=== PATIENT | male | born 1980 | race Caucasian/White ===

== ENCOUNTER 2018-12-23 15:44 | Emergency (ER) | payer BC ==
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
== END 2018-12-23 17:47 | disposition home or self-care (01) ==
LOC: JD.ED 15:44
DX: T20.50XA Corrosion of first degree of head, face, and neck, unspecified site, initial encounter (principal); T22.5 Corrosion of first degree of shoulder and upper limb, except wrist and hand; K21.9 Gastro-esophageal reflux disease without esophagitis; Z79.899 Other long term (current) drug therapy
CPT/HCPCS: 99283